=== PATIENT | male | born 1960 | race Caucasian/White ===

== ENCOUNTER 2016-09-27 13:06 | Emergency (ER) | payer MEDICAID, OTHER ==
[~2016-09-27] VITALS: Ht 170.2 cm; Wt 127.0 kg
[~2016-09-27 13:06] MED LIST: DICL50TA2 PO; GLIP5TAB8 PO; GLUC1000 PO; METF500 PO; METH750T2 PO
[2016-09-27 13:08] VITALS: BP 144/92; PULSE 77; RESP 20; TEMP 98.1; O2SAT 98
[2016-09-27] MEDS ORDERED: METF500T PO (14:07)
[2016-09-27] MEDS ORDERED: BACL10TA PO (14:07)
[2016-09-27] MEDS ORDERED: ATOR40TA16 PO (14:07)
[2016-09-27] MEDS ORDERED: ATEN50TA PO (14:07)
[2016-09-27] MEDS ORDERED: ENAL20TA PO (14:07)
[2016-09-27] MEDS ORDERED: TERA2CAP3 PO (14:07)
[2016-09-27] MEDS ORDERED: ASPI81CH CHEW (14:07)
[2016-09-27] MEDS ORDERED: ORPHENADRINE INJ 60 MG/2 ML AMP IM ONE (14:15)
[2016-09-27] MEDS ORDERED: DEXAMETHASONE SOD PHOS 20 MG/5 ML VIAL IM ONE (14:15)
[2016-09-27] MEDS ORDERED: NAPR500 PO (14:18)
--- NOTE | 2016-09-27 14:18 | PD ---
HPI Chief Complaint: Back/ Neck Pain or Injury Time Seen by Provider: 00:16 Travel History International Travel<30 days: No Contact w/Intl Traveler<30days: No Traveled to known affect area: No History of Present Illness HPI 56-year-old male presents to the emergency department for evaluation of neck pain that radiates to his arms for the last 6 weeks. Patient has been seen and evaluated by his primary care provider. He has been started on baclofen. No imaging studies have been done at this time. Patient reports no new injury. No focal deficits or weakness. Patient denies chest pain or tightness. No difficulty breathing. No recent illnesses, fever, chills. No other symptoms to report. PFSH Past Medical History Depression: Yes Cancer: Yes (skin) Cardiovascular Problems: Yes (HTN) Diabetes: Yes Patient Takes Glucophage: Yes (METFORMIN ) Diminished Hearing: No Hypertension: Yes Social History Alcohol Use: No Tobacco Use: No Substance Use: No Allergies-Medications (Allergen,Severity, Reaction): Coded Allergies: No Known Allergies (Unverified , 09/27/16) Reported Meds & Prescriptions Reported Meds & Active Scripts Active Naprosyn (Naproxen) 500 Mg Tab 500 Mg PO BID PRN Reported Baclofen 10 Mg Tab 10 Mg PO Q8HR PRN Metformin (Metformin HCl) 500 Mg Tab 500 Mg PO BIDPC With meals Aspirin 81 Mg Chew 81 Mg CHEW DAILY Enalapril (Enalapril Maleate) 20 Mg Tab 20 Mg PO DAILY Atorvastatin (Atorvastatin Calcium) 40 Mg Tab 40 Mg PO HS Atenolol 50 Mg Tab 50 Mg PO DAILY Terazosin (Terazosin HCl) 2 Mg Cap 2 Mg PO HS Review of Systems Except as stated in HPI: all other systems reviewed are Neg Physical Exam Narrative GENERAL: Well-nourished, well-developed patient, ambulatory with a nonantalgic gait no acute distress SKIN: Focused skin assessment warm/dry. HEAD: Normocephalic. EYES: No scleral icterus. No injection or drainage. NECK: Supple, trachea midline. No JVD or lymphadenopathy. No cervical spine tenderness to palpation. CARDIOVASCULAR: Regular rate and rhythm without murmurs, gallops, or rubs. RESPIRATORY: Breath sounds equal bilaterally. No accessory muscle use. GASTROINTESTINAL: Abdomen soft, non-tender, nondistended. MUSCULOSKELETAL: No cyanosis, or edema. Equal skin care therapist strength bilateral upper extremities. Deltoid strength is equal. No hyperreflexia. Negative Hampton sign. BACK: Nontender without obvious deformity. No CVA tenderness. Data Data Last Documented VS Vital Signs Date Time Temp Pulse Resp B/P Pulse Ox O2 Delivery O2 Flow Rate FiO2 09/27/16 14:55 70 18 131/88 97 Room Air 09/27/16 13:08 98.1 Orders Dexamethasone Inj (Decadron Inj) (09/27/16 14:15) Orphenadrine Inj (Norflex Inj) (09/27/16 14:15) MDM Medical Decision Making Medical Screen Exam Complete: Yes Emergency Medical Condition: Yes Medical Record Reviewed: Yes Differential Diagnosis Neuropathy versus cervical radiculopathy versus muscle spasm versus strain versus discogenic pain Narrative Course 56-year-old male presents to the emergency department for evaluation of neck pain radiating to his arms for the last 6 weeks. Patient is accompanied by his daughter who translates for him. Patient has no cervical spine tenderness. No limitations in range of motion. This is likely radicular pain. I have encouraged the patient to follow-up with his primary care provider. Outpatient imaging is recommended for further evaluation of this pain. Patient agrees to return immediately with any acute worsening symptoms. Diagnosis Primary Impression: Cervical radicular pain Referrals: Primary Care Physician Patient Instructions: Cervical Radiculopathy (ED), General Instructions Additional Instructions: Follow up with your primary care provider Outpatient imaging is recommended for further evaluation of your pain Monitor your blood sugar closely because medicine given today will increase your blood sugar DO NOT take ibuprofen or other NSAID if you take this prescription Naprosyn for pain Return to ED with acute worsening of symptoms Med/Other Pt SpecificInfo: Prescription(s) given Scripts Naproxen (Naprosyn)500 Mg Lpm182 Mg PO BID PRN (PAIN SCALE 1 TO 10) #30 TAB Ref 0 Prov:Alka Carter 09/27/16 Disposition: 01 DISCHARGE HOME Condition: Stable Alka Carter Sep 27, 2016 14:18
[2016-09-27 14:55] VITALS: BP 131/88; PULSE 70; RESP 18; O2SAT 97
== END 2016-09-27 15:09 | disposition home or self-care (01) ==
LOC: NEPD 13:06
DX: M54.12 Radiculopathy, cervical region (principal); I10 Essential (primary) hypertension; F32.9 Major depressive disorder, single episode, unspecified; E11.9 Type 2 diabetes mellitus without complications; Z79.84 Long term (current) use of oral hypoglycemic drugs
CPT/HCPCS: 96372; 99284; J1100; J2360